=== PATIENT | female | born 1980 | race Asian ===

== ENCOUNTER 2024-04-19 08:10 | Outpatient (CLI) | payer OTHER, SELFPAY ==
--- NOTE | ~2024-04-19 | MR_ITS ---
EXAMINATION: MR knee RT wo con DATE: 04/19/2024 08:43 INDICATION: Acute right knee pain. TECHNIQUE: Magnetic resonance imaging (MRI) of the right knee was performed without intravenous contr ast. Sequences included axial PD-weighted FS FSE, coronal PD-weighted FSE and PD-weighted FS FSE, sag ittal PD-weighted FSE, and sagittal T2-weighted FS FSE. COMPARISON: Right knee radiographs 04/19/2024 FINDINGS: Medial compartment: Medial meniscus is normal. Medial compartment cartilage is normal. Lateral compartment: Lateral meniscus is normal. Lateral compartment cartilage is normal. Patellofemoral compartment: Patellar cartilage is normal. There is cartilage surface irregularity of trochlea. There are tiny ost eophytes. Ligaments and tendons: The anterior and posterior cruciate ligaments are normal. There are changes of prior sprains of media l collateral ligament and fibular collateral ligament characterized by thickening and increased signa l intensity proximally. The patellar tendon is normal. Fluid: There is a small knee joint effusion. There is a small Bhatti's cyst. There is mild superficial infrap atellar bursitis. IMPRESSION: 1. Mild chondrosis in patellofemoral compartment. 2. Small knee joint effusion. 3. Small Bhatti's cyst. Reviewed, dictated and finalized at location A.
--- NOTE | ~2024-04-19 | XR_ITS ---
EXAMINATION: XR knee LT 3V DATE: 04/19/2024 08:52 INDICATION: Acute left knee pain. TECHNIQUE: 3 views of left knee were obtained. COMPARISON: None. FINDINGS: Bone alignment is normal. No fracture. There is mild osteoarthritis of medial and patellofe moral compartments characterized by tiny osteophytes. No joint space narrowing. There is a small knee joint effusion. IMPRESSION: 1. Mild left knee osteoarthritis. 2. Small left knee joint effusion. Reviewed, dictated and finalized at location A.
--- NOTE | ~2024-04-19 | XR_ITS ---
EXAMINATION: XR knee RT 3V DATE: 04/19/2024 08:52 INDICATION: Acute right knee pain. TECHNIQUE: 3 views of right knee including standing views were obtained. COMPARISON: None. FINDINGS: Bone alignment is normal. No fracture. There is mild osteoarthritis of patellofemoral елена rtment characterized by tiny osteophytes. There is a small knee joint effusion. IMPRESSION: 1. Mild right knee osteoarthritis. 2. Small right knee joint effusion. Reviewed, dictated and finalized at location A.
== END 2024-04-19 08:11 ==
PROVIDERS: PCP Family Medicine; Visit Provider Family Medicine
DX: M25.561 Pain in right knee (principal); M25.562 Pain in left knee; M17.0 Bilateral primary osteoarthritis of knee; M25.462 Effusion, left knee; M25.461 Effusion, right knee; M71.21 Synovial cyst of popliteal space [Baker], right knee
CPT/HCPCS: 73562; 73721